=== PATIENT | male | born 1990 | race Caucasian/White ===

== ENCOUNTER 2020-06-01 11:52 | Emergency (ER) | payer OTHER, SELFPAY ==
--- NOTE | ~2020-06-01 | XR_ITS ---
EXAMINATION: XR foot RT min 3V DATE: 06/01/2020 12:12 INDICATION: Right foot pain. TECHNIQUE: 4 views of right foot were obtained. COMPARISON: None. FINDINGS: There is mild hallux valgus. There is a comminuted fracture of first proximal phalanx invol ving the distal half with involvement of the articular surface. The main distal fracture fragment dem onstrates impaction and 4 mm dorsal displacement and 10 degrees lateral angulation. 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 IMPRESSION: 1. Comminuted fracture of first proximal phalanx. Reviewed, dictated and finalized at location A.
[2020-06-01 12:04] VITALS: BP 143/90; PULSE 98; RESP 16; TEMP 36.8; O2SAT 100
--- NOTE | 2020-06-01 12:10 | ED.GENADULT ---
HPI - General Adult General Chief complaint: Extremity Injury, Lower Stated complaint: Right left foot big toe pain Time Seen by Provider: 06/01/20 12:10 Source: patient Mode of arrival: ambulatory Limitations: no limitations History of Present Illness HPI narrative: 29-year-old male patient presents to the [facility] with complaints of right great toe pain since last night. Patient states that he was playing with his son yesterday and was running around the house and states when he came around a corner in his kitchen he jammed his right great toe into the corner of the cabinet. Patient states he did take some ibuprofen last night but does not feel like it has helped much. Patient states that the pain does radiate up into the foot along the first metatarsal. Patient denies any numbness or tingling at this time. Related Data Home Medications Medication Instructions Recorded Confirmed No Home Medications 06/01/20 06/01/20 Allergies Allergy/AdvReac Type Severity Reaction Status Date / Time No Known Allergies Allergy Mild Unverified 10/24/08 14:39 Review of Systems Review of Systems: Narrative: CONSTITUTIONAL: Denies fever, chills, or sweats. EYES: Denies visual changes, redness, or discharge. ENT: Denies rhinorrhea, congestion, sore throat, or otalgia. CARDIOVASCULAR: Denies chest pain, palpitations, or edema. RESPIRATORY: Denies cough or dyspnea. GASTROINTESTINAL: Denies abdominal pain, nausea, vomiting, or diarrhea. GENITOURINARY: Denies dysuria or hematuria. SKIN: Denies rash or itching. MUSCULOSKELETAL: Denies back pain, joint pain, or myalgia. Positive right great toe pain NEUROLOGIC: Denies headache, numbness, or weakness. PSYCHIATRIC: Denies anxiety or depression. PMFSH Comments At the time of my signature I agree with nursing past medical history, surgical, social, and family history. There is no relevant family history pertinent to the presenting complaint. Exam Narrative: Exam Narrative: GENERAL: Well-appearing, well-nourished, and in no acute distress. HEAD: Normocephalic, atraumatic. EYES: PERRLA and EOMI. ENT: Nares clear, no rhinorrhea or epistaxis. Mucous membranes moist. NECK: Supple. No lymphadenopathy CHEST: Clear to auscultation. No respiratory distress. HEART: Regular rate and rhythm. No murmur heard. Normal peripheral pulses. ABDOMEN: Soft, nontender, nondistended, normal active bowel sounds. EXTREMITIES: Patient able to bear weight and ambulate but does have pain to the right great toe. Patient does have some ecchymosis and redness as well as swelling noted to the right great toe that extends to the middle of the first metatarsal, no open wounds. The R foot is without obvious asymmetry or deformity when compared to the L foot. No bony step-off, tender to palpation over the right great toes, no tenderness to the midfoot or hindfoot or sole. Normal plantar/dorsiflexion, inversion/eversion. Distal motor and neurovascular status are intact SKIN: Warm, dry, no rash. NEURO: No focal deficits. Alert and oriented x3. Course Reevaluation(s) Reevaluation #1: Reevaluated patient after x-ray had resulted. Discussed with him that it does appear that he has a fracture to the right great toe. Discussed with him we will go ahead and kareem tape the toe as well as put him in a postop shoe to help take the pressure off of the foot when he walks. Offered patient crutches but however he has refused crutches at this time. Discussed with him he needs to keep it elevated, Tylenol and ibuprofen as needed for pain and ice it to help with swelling. Discussed with patient that he has been referred to Dr. Kennedy and I encouraged him to call his office tomorrow morning and schedule a follow-up appoint with him for further evaluation and treatment. Patient verbalized understanding denies any other questions or concerns at this time. Date: 06/01/20 Time: 12:26 Vital Signs Vital signs: Vital Signs Temperature 36.8 C
== END 2020-06-01 12:36 | disposition home or self-care (01) ==
PROVIDERS: Emergency Provider Nurse Practitioner Family
DX: S92.421A Displaced fracture of distal phalanx of right great toe, initial encounter for closed fracture (principal); W22.09XA Striking against other stationary object, initial encounter
CPT/HCPCS: 73630; 99213; 99214; G0463